=== PATIENT | male | born 1990 | race Caucasian/White ===

== ENCOUNTER 2019-10-07 10:23 | Outpatient (CLI) | payer OTHER, SELFPAY ==
--- NOTE | 2019-10-07 10:57 | FL_ITS ---
WS: [id number] FL upper GI w air* [id number] REASON FOR EXAM: ? GERD FLUOROSCOPY TIME: 4 minutes FINDINGS: Air contrast study of the stomach The esophagus is patent no filling defects were noted. There is considerable pylorospasm noted. The stomach including the fundus body were all normal no ulcerated areas. The duodenum and duodenal cap were all normal. The small bowel follow-through show normal appearance of the small bowel. There was no reflux noted during this exam. FL/FL upper GI w air* [id number] IMPRESSION: Pylorospasm Normal esophagus, stomach, and duodenum.
== END 2019-10-07 10:24 | disposition home or self-care (01) ==
PROVIDERS: PCP Nurse Practitioner Primary Care; Visit Provider Surgery
DX: K21.9 Gastro-esophageal reflux disease without esophagitis (principal); K31.3 Pylorospasm, not elsewhere classified
CPT/HCPCS: 74246

== ENCOUNTER 2019-10-28 07:50 | Outpatient (CLI) | payer OTHER, SELFPAY ==
--- NOTE | 2019-10-28 08:00 | NM_ITS ---
WS: [id number] NUCLEAR MEDICINE GASTRIC EMPTYING EXAMINATION HISTORY: abdominal pain COMPARISON: None available. TECHNIQUE: The patient ingested a meal containing 1.1 mCi of Tc 99m sulfur colloid mixed with eggs. The patient was placed in supine position and imaging over the abdomen was performed for a total of 9 0 minutes. Computer acquisition with the region of interest placed over the stomach to evaluate gastr ic emptying half-time. There is 50% gastric emptying at 65 minutes. Downsloping of the curve appear to flatten with delayed but persistent emptying at about the 45 minute tung. NM/[place] [id number] IMPRESSION: Low normal gastric emptying time.
== END 2019-10-28 07:51 | disposition home or self-care (01) ==
LOC: NM 07:53
PROVIDERS: PCP Nurse Practitioner Primary Care; Visit Provider Surgery
DX: R10.9 Unspecified abdominal pain (principal)
CPT/HCPCS: 78264; A9541